=== PATIENT | male | born 1970 | race Caucasian/White ===

== ENCOUNTER 2021-05-09 12:34 | Emergency (ER) | payer OTHER ==
[~2021-05-09] VITALS: Ht 167.6 cm; Wt 77.0 kg
[2021-05-09 13:37] VITALS: BP 143/93
== END 2021-05-09 15:41 ==
LOC: ER 12:34
DX: I10 Essential (primary) hypertension (principal); E11.9 Type 2 diabetes mellitus without complications; E78.00 Pure hypercholesterolemia, unspecified
CPT/HCPCS: 99283

== ENCOUNTER 2024-01-08 02:23 | Inpatient (IN) | payer SELFPAY ==
[~2024-01-08] VITALS: Ht 177.8 cm; Wt 68.9 kg
[2024-01-08] MEDS: ASPIRIN 81MG TABLET PO ONE (03:21)
[2024-01-08 03:28] LABS: BASOPHILS % 0.7 % (0.0-2.0); EOSINOPHILS % 0.4 % (0.0-5.0); HEMATOCRIT. 47.2 % (42.0-52.0); HEMOGLOBIN. 15.7 g/dL (14.0-18.0); LYMPHOCYTES % 10.2 % (20.0-50.0); MEAN CORPUSCULAR HEMOGLOBIN 31.7 pg (28.0-32.0); MEAN CORPUSCULAR HGB CONC 33.2 g/dL (31.0-37.0); MEAN CORPUSCULAR VOLUME 95.4 fL (80.0-94.0); MEAN PLATELET VOLUME 8.4 fl (7.4-10.4); MONOCYTES % 2.7 % (2.0-8.0); PLATELET 337 x1000/uL (130-400); RED BLOOD CELL COUNT 4.94 mill/uL (4.7-6.1); RED CELL DISTRIBUTION WIDTH 14.1 % (11.6-14.6); WHITE BLOOD COUNT 19.6 x1000/uL (4.5-11.0)
[2024-01-08 03:32] LABS: CHLORIDE 100 mEq/L (98-107); POTASSIUM 3.9 mEq/L (3.5-5.1); SODIUM 140 mEq/L (136-145)
[2024-01-08 03:33] LABS: CARBON DIOXIDE 15 mEq/L (21-32)
[2024-01-08 03:34] LABS: CALCIUM 9.5 mg/dL (8.7-10.4)
[2024-01-08 03:38] LABS: CREATININE 1.2 mg/dL (0.6-1.3); GLUCOSE 284 mg/dL (70-105); UREA NITROGEN BLOOD 19 mg/dL (9-23)
[2024-01-08 03:52] LABS: TROPONIN I HIGH SENSITIVITY < 4 ng/L (3.0-53)
[2024-01-08] MEDS: ONDANSETRON HCL 4MG/2ML INJ IV STA (04:17)
[2024-01-08 07:05] LABS: TROPONIN I HIGH SENSITIVITY < 4 ng/L (3.0-53)
[2024-01-08 07:07] LABS: FOLIC ACID (FOLATE) SERUM 15.78 ng/mL (>5.38); VITAMIN B12 SERUM 560 pg/mL (211-911)
[2024-01-08] MEDS: IOHEXOL-350 100 ML BOTTLE ONE (07:16)
[2024-01-08] MEDS: ONDANSETRON HCL 4MG/2ML INJ IV ONE (08:07)
[2024-01-08 10:28] LABS: CHOLESTEROL 344 mg/dL (<200); ETHANOL BLOOD 183 mg/dL (<10); HDL CHOLESTEROL 65 mg/dL (>55); IRON 135 ug/dL (65-175); LDL CHOLESTEROL 167 mg/dL (5-100); TOTAL IRON BINDING CAPACITY 341 ug/dl (250-425); TRIGLYCERIDE 637 mg/dL (0-150)
[2024-01-08] MEDS ORDERED: GUAIFENESIN 200MG/10ML SUGAR FREE UDC PO PRN (12:45)
[2024-01-08] MEDS ORDERED: IPRATROPIUM/ALBUTEROL 0.5-3(2.5)MG/3ML NEB NEB PRN (12:45)
[2024-01-08] MEDS ORDERED: MAGNESIUM/ALUMINUM HYDROXIDE/SIMETHICONE 30ML UDC PO PRN (12:45)
[2024-01-08] MEDS ORDERED: CLONIDINE 0.1MG TABLET PO PRN (12:45)
[2024-01-08] MEDS ORDERED: DOCUSATE SODIUM 100MG CAPSULE PO PRN (12:45)
[2024-01-08] MEDS ORDERED: ONDANSETRON HCL 4MG/2ML INJ IV PRN (12:45)
[2024-01-08] MEDS ORDERED: NITROGLYCERIN 0.4MG TABLET SL SL PRN (12:45)
[2024-01-08] MEDS ORDERED: ACETAMINOPHEN 325MG TABLET PO PRN ×2 (12:45)
[2024-01-08] MEDS ORDERED: ZOLPIDEM TARTRATE 5MG TABLET PO PRN (12:45)
[2024-01-08] MEDS ORDERED: KETOROLAC 15MG/ML VIAL IV PRN (12:45)
[2024-01-08] MEDS: SUCRALFATE 1G TABLET PO SCH (13:15)
[2024-01-08] MEDS: ENOXAPARIN 40MG/0.4ML SYR SUBCUT SCH (16:00)
[2024-01-08] MEDS: CHLORDIAZEPOXIDE 5 MG CAPSULE PO SCH (16:15)
[2024-01-08] MEDS: MVI, ADULT NO.1 10 ML, FOLIC ACID 1 MG, THIAMINE HCL 100 MG in SODIUM CHLORIDE 0.9% 1,0... IV SCH (16:15)
[2024-01-08 17:23] VITALS: BP 151/76; PULSE 102; RESP 19; TEMP 37.1408
[2024-01-08] MEDS ORDERED: ATOR40TA70 PO (18:03)
[2024-01-08] MEDS ORDERED: ENAL-77 PO (18:03)
[2024-01-08] MEDS ORDERED: THIA50TA12 MT (18:03)
[2024-01-08] MEDS ORDERED: EMPA25TA PO (18:03)
[2024-01-08] MEDS ORDERED: GLIP10TA17 PO (18:03)
[2024-01-08] MEDS ORDERED: INSU100I13 SQ (18:03)
[2024-01-08] MEDS ORDERED: LANTUSUD SUBCUT (18:03)
[2024-01-08] MEDS ORDERED: FOLI0.4T6 PO (18:03)
[2024-01-08] MEDS ORDERED: METF-416 PO (18:03)
[2024-01-08 20:51] LABS: CREATINE KINASE MB FRACTION 1.4 ng/mL (0.5-3.6); TROPONIN I HIGH SENSITIVITY 7 ng/L (3.0-53)
[2024-01-08 20:52] LABS: CREATINE KINASE 103 IU/L (46-171)
[2024-01-08] MEDS: FAMOTIDINE 20MG TABLET PO SCH (23:40)
[2024-01-09 08:00] VITALS: BP 149/83; PULSE 71; RESP 18; TEMP 36.3918; TEMP 36.39180; O2SAT 97
[2024-01-09 08:18] LABS: BASOPHILS % 0.9 % (0.0-2.0); EOSINOPHILS % 0.8 % (0.0-5.0); HEMATOCRIT. 40.4 % (42.0-52.0); HEMOGLOBIN. 13.7 g/dL (14.0-18.0); LYMPHOCYTES % 14.1 % (20.0-50.0); MEAN CORPUSCULAR HEMOGLOBIN 31.9 pg (28.0-32.0); MEAN CORPUSCULAR VOLUME 93.8 fL (80.0-94.0); MEAN PLATELET VOLUME 8.7 fl (7.4-10.4); MONOCYTES % 8.4 % (2.0-8.0); NEUTROPHILS % 75.8 % (40.0-76.0); PLATELET 245 x1000/uL (130-400); RED BLOOD CELL COUNT 4.31 mill/uL (4.7-6.1); RED CELL DISTRIBUTION WIDTH 14.2 % (11.6-14.6); WHITE BLOOD COUNT 8.7 x1000/uL (4.5-11.0)
[2024-01-09 08:22] LABS: CHLORIDE 97 mEq/L (98-107); POTASSIUM 3.4 mEq/L (3.5-5.1); SODIUM 134 mEq/L (136-145)
[2024-01-09 08:24] LABS: CALCIUM 9.2 mg/dL (8.7-10.4); CARBON DIOXIDE 28 mEq/L (21-32)
[2024-01-09 08:29] LABS: GLUCOSE 264 mg/dL (70-105); UREA NITROGEN BLOOD 17 mg/dL (9-23)
[2024-01-09 08:30] LABS: ALANINE AMINOTRANSFERASE 35 IU/L (10-49); ASPARTATE AMINOTRANSFERASE 41 IU/L (<34)
[2024-01-09 08:31] LABS: ALBUMIN 4.4 g/dL (3.2-4.8); CREATINE KINASE 110 IU/L (46-171); CREATINE KINASE MB FRACTION 1.4 ng/mL (0.5-3.6); PHOSPHORUS 2.4 mg/dL (2.5-4.9)
[2024-01-09 08:32] LABS: BILIRUBIN TOTAL 0.9 mg/dL (0.1-1.0); PROTEIN TOTAL 6.7 g/dL (6.0-8.3)
[2024-01-09 09:21] LABS: TROPONIN I HIGH SENSITIVITY < 4 ng/L (3.0-53)
[2024-01-09] MEDS ORDERED: THIA50TA12 MT (10:12)
[2024-01-09] MEDS ORDERED: FOLI-43 MT (10:12)
[2024-01-09] MEDS ORDERED: ASPI-1406 MT (10:12)
[2024-01-09] MEDS ORDERED: MULT-624 MT (10:12)
[2024-01-09 10:34] VITALS: BP 141/85; PULSE 75; TEMP 97.3; O2SAT 95
== END 2024-01-09 11:35 | disposition home or self-care (01) | DRG 241 ==
LOC: ER 02:23 → 7WST 04:20 → EDBEDREQ 05:02 → EDBEDREQTM 05:02
PROVIDERS: ADMIT Internal Medicine; ATTEND Internal Medicine
DX: K29.70 Gastritis, unspecified, without bleeding (principal); E11.9 Type 2 diabetes mellitus without complications; E78.00 Pure hypercholesterolemia, unspecified; F10.239 Alcohol dependence with withdrawal, unspecified; I10 Essential (primary) hypertension; Z79.899 Other long term (current) drug therapy
CPT/HCPCS: 36415; 71045; 71275; 80048; 80053; 80061; 80320; 82550; 82553; 82607; 82746; 83036; 83540; 83550; 83735; 83880; 84100; 84145; 84439; 84443; 84484; 85025; 85379; 93970; 99291; J1650; J2405; J3411; J3490; J7030; Q9967; G0480